=== PATIENT | female | born 1985 | race Asian ===

== ENCOUNTER 2017-12-25 08:51 | Inpatient (IN) | payer BC ==
[2017-12-25] MEDS ORDERED: IBUPROFEN 600 MG TAB PO (09:30)
[2017-12-25] MEDS ORDERED: CARBOPROST 250 MCG INJ IM ×2 (09:30→21:00)
[2017-12-25] MEDS: LACTATED RINGER'S 1,000 ML IV* ×3 (09:30→17:25)
[2017-12-25] MEDS ORDERED: LIDOCAINE 1% (MPF) 30 ML INJ INJ (09:30)
[2017-12-25] MEDS: AMPICILLIN 2 GM/NS (PMX) 100 ML IV (09:30)
[2017-12-25] MEDS ORDERED: MISOPROSTOL 200 MCG TAB PR ×2 (09:30→21:00)
[2017-12-25] MEDS ORDERED: METHYLERGONOVINE 0.2 MG INJ IM ×2 (09:30→21:00)
[2017-12-25] MEDS ORDERED: OXYTOCIN 30 UNITS/LR 500 ML IV ×2 (09:30→21:00)
[2017-12-25] MEDS ORDERED: BUTORPHANOL 2 MG INJ IV (09:30)
[2017-12-25 10:17] LABS: ADD MAN DIFF? NO
[2017-12-25] MEDS: DINOPROSTONE 10 MG VAG SUPP VAG (10:17)
[2017-12-25 10:23] LABS: WHITE BLOOD COUNT 8.1 10^3/ul (4.8-10.8)
[2017-12-25 10:23] LABS: BASOPHILS % 0.2 % (0.0-2.0); EOSINOPHILS # 0.1 10^3/ul (0.0-0.5); EOSINOPHILS % 0.9 % (0.0-7.0); HEMATOCRIT 32.9 % (37.0-47.0); HEMOGLOBIN 10.2 g/dl (12.0-16.0); LYMPHOCYTES # 1.5 10^3/ul (0.8-2.9); MEAN CORPUSCULAR HEMOGLOBIN 24.9 pg (29.0-33.0); MEAN CORPUSCULAR VOLUME 80.2 fl (82.0-101.0); MONOCYTE # 0.4 10^3/ul (0.3-0.9); MONOCYTES % 5.4 % (0.0-11.0); NEUTROPHIL # 6.1 10^3/ul (1.6-7.5); NEUTROPHILS % 74.8 % (39.0-77.0); NUCLEATED RED BLOOD CELLS% 0.2 /100WBC (0.0-0.0); PLATELET COUNT 195 10^3/UL (140-415); RED CELL DISTRIBUTION WIDTH 18.1 % (11.5-14.5)
[2017-12-25 10:42] LABS: INR 0.88; PT RATIO 0.9
[2017-12-25 11:40] LABS: HEPATITIS B SURFACE ANTIGEN NEGATIVE (NEGATIVE)
[2017-12-25] MEDS: AMPICILLIN 1 GM/NS (PMX) 50 ML IV ×2 (13:44→17:25)
[2017-12-25] MEDS ORDERED: NALOXONE (0.4 MG/ML) INJ IV (14:30)
[2017-12-25] MEDS ORDERED: FENTAnyl 2MCG/ML-ROPIV 0.2% 100 ML BAG EPI (14:30)
[2017-12-25 15:25] LABS: RAPID PLASMA REAGIN NONREACTIVE (NR)
[2017-12-25] MEDS: OXYTOCIN 30 UNITS/LR 500 ML IV ×2 (19:38→20:12)
[2017-12-25] MEDS ORDERED: DIPHENHYDRAMINE 50 MG INJ IV (21:00)
[2017-12-25] MEDS ORDERED: HYDROCODONE/APAP (5/325) TAB PO ×2 (21:00)
[2017-12-25] MEDS ORDERED: ACETAMINOPHEN 325 MG TAB PO ×2 (21:00)
[2017-12-25] MEDS ORDERED: ONDANSETRON 4 MG INJ IV (21:00)
[2017-12-25] MEDS ORDERED: DIBUCAINE 1% 30 GM OINT PR (21:00)
[2017-12-25] MEDS ORDERED: ONDANSETRON 4 MG TAB PO (21:00)
[2017-12-25] MEDS ORDERED: SENNA/DOCUSATE NA (8.6MG/50MG) TAB PO (21:00)
[2017-12-25] MEDS ORDERED: LANOLIN 7 GM TUBE TOP (21:00)
[2017-12-25] MEDS ORDERED: DIPHENHYDRAMINE 25 MG CAP PO (21:00)
[2017-12-25] MEDS: BENZOCAINE 20% 56 ML SPRAY TOP (23:58)
[2017-12-25] MEDS: IBUPROFEN 800 MG TAB PO (23:58)
[2017-12-26] MEDS: LACTATED RINGER'S 1,000 ML IV* (01:27)
[2017-12-26] MEDS: IBUPROFEN 800 MG TAB PO ×4 (05:30→23:31)
[2017-12-26 09:21] LABS: ADD MAN DIFF? NO
[2017-12-26 09:29] LABS: WHITE BLOOD COUNT 9.8 10^3/ul (4.8-10.8)
[2017-12-26 09:29] LABS: BASOPHILS % 0.2 % (0.0-2.0); EOSINOPHILS # 0.1 10^3/ul (0.0-0.5); EOSINOPHILS % 1.1 % (0.0-7.0); HEMATOCRIT 28.9 % (37.0-47.0); HEMOGLOBIN 8.9 g/dl (12.0-16.0); LYMPHOCYTES # 1.5 10^3/ul (0.8-2.9); LYMPHOCYTES % 14.7 % (15.0-51.0); MEAN CORPUSCULAR HEMOGLOBIN 24.8 pg (29.0-33.0); MEAN CORPUSCULAR HGB CONC 30.8 g/dl (32.0-37.0); MEAN CORPUSCULAR VOLUME 80.5 fl (82.0-101.0); MEAN PLATELET VOLUME 12.9 fl (7.4-10.4); MONOCYTE # 0.4 10^3/ul (0.3-0.9); MONOCYTES % 3.7 % (0.0-11.0); NEUTROPHIL # 7.8 10^3/ul (1.6-7.5); NEUTROPHILS % 79.7 % (39.0-77.0); PLATELET COUNT 164 10^3/UL (140-415); RED BLOOD COUNT 3.59 10^6/ul (4.20-5.40); RED CELL DISTRIBUTION WIDTH 18.5 % (11.5-14.5)
[2017-12-26] MEDS: MAGNESIUM HYDROXIDE 30ML CUP PO (15:07)
[2017-12-27] MEDS: IBUPROFEN 800 MG TAB PO ×2 (05:36→12:00)
[2017-12-27] MEDS: MEASLES,MUMPS,RUBELLA VACCINE INJ SC* (09:00)
[2017-12-27] MEDS: VARICELLA VACCINE LIVE/PF 1,350 UNIT/0.5 ML ML SC* (09:00)
[2017-12-27] MEDS: DIPHTH/TET/ACEL PERTUSS (ADULT) 0.5 ML VIAL IM* (10:29)
== END 2017-12-27 13:40 | disposition home or self-care (01) | DRG 807 ==
LOC: L-D 08:51 → PP1 21:49
PROVIDERS: Obstetrics & Gynecology
PROC: 10E0XZZ Delivery of Products of Conception, External Approach (ICD-10-PCS; principal; 2017-12-25 08:30)
PROC: 3E0P7VZ Introduction of Hormone into Female Reproductive, Via Natural or Artificial Opening (ICD-10-PCS; 2017-12-25 08:30)
DX: O36.5930 Maternal care for other known or suspected poor fetal growth, third trimester, not applicable or unspecified (principal); Z37.0 Single live birth; Z3A.39 39 weeks gestation of pregnancy
CPT/HCPCS: 62319; 85025; 85610; 85730; 86592; 86850; 86900; 86901; 87340; 88307; 90715; 90716